=== PATIENT | female | born 1975 | race Caucasian/White ===

== ENCOUNTER 2020-11-29 20:55 | Emergency (ER) | payer SELFPAY ==
[2020-11-29 21:18] VITALS: BP 111/79; PULSE 69; RESP 18; TEMP 36.4; O2SAT 100; BMI 28.1
--- NOTE | 2020-11-29 21:34 | CTR_ITS ---
PROCEDURE INFORMATION: Exam: CT Head Without Contrast Exam date and time: 11/29/2020 9:39 PM Age: 45 years old Clinical indication: Pain; Headache; Patient HX: LAIRD post 2nd covid vaccine TECHNIQUE: Imaging protocol: Computed tomography of the head without contrast. Total images: 183 Radiation optimization: All CT scans at this facility use at least one of these dose optimization techniques: automated exposure control; mA and/or kV adjustment per patient size (includes targeted exams where dose is matched to clinical indication); or iterative reconstruction. COMPARISON: No relevant prior studies available. RADIATION DOSE METRICS: Total DLP (mGy-cm): 791.83 FINDINGS: Brain: No evidence of active or acute intracranial pathologic process, hemorrhage, or trauma. No visible evidence of diffuse cerebral edema or generalized demyelination. No mass effect. No midline shift. Cerebral ventricles: Patent cavum septum pellucidum. No ventriculomegaly. Bones/joints: Unremarkable. No acute fracture. Paranasal sinuses: Visualized sinuses are unremarkable. No fluid levels. Mastoid air cells: Visualized mastoid air cells are well aerated. Soft tissues: Unremarkable. CT/CT head wo con* [id number] IMPRESSION: No evidence of active or acute intracranial pathologic process, hemorrhage, or trauma. Radiation Dose CTDIVOL = (mGy): DLP = 791.83 (mGy-cm)
--- NOTE | 2020-11-29 21:40 | W.ED.HA ---
HPI - Headache General: Chief Complaint: Headache Stated Complaint: Severe headache Time Seen by Provider: 11/29/20 21:25 Source: patient Mode of arrival: ambulatory Limitations: no limitations History of Present Illness: HPI Narrative: 45-year-old female patient presents to the emergency department with severe headache. She received her second dose of Covid vaccine at approximately noon today. She reports took Tylenol approximately 4:30 PM due to her arm being sore at the injection site. She states went outside to feed the animals and to take care of the kids completing chores. States came inside when she immediately developed excruciating headache. She reports nausea, took oxycodone at approximately 7 PM due to severity of the headache. She states is concerned as her father has aneurysm of the brain. She denies history of migraine headaches. She reports neck pain that started prior to onset of headache. She denies fever chills shortness of breath. She reports her headache was the worst headache she has ever experienced. Reports headache was 10 out of 10; now reports headache is 3 out of 10. MD elicited complaint: headache Onset (ago): hour(s) (2) Time: 19:00 Onset description: suddenly Location: occipital Severity: severe Quality & Timing: aching, throbbing and sharp Exacerbating factors: none Relieving factors: other (Oxycodone) Context: occurred with exertion/activity Associated symptoms: Reports no associated symptoms and nausea; Deny confusion, diaphoresis, eye pain, eye redness, fever(s), lightheadedness, loss of vision, malaise, neck stiffness, numbness, photophobia, rash or vomiting Treatments prior to arrival: acetaminophen and prescription analgesic Review of Systems General: Reports: 10 or more systems reviewed and unremarkable except in HPI and below Const: Denies: fever(s), chills, fatigue, malaise or diaphoresis Eyes: Denies: change in vision, blurry vision, eye discomfort or eye redness ENMT: Denies: throat pain, dental pain or disequilibrium Card: Denies: palpitations, swelling of feet/ankles, lightheadedness, dyspnea on exertion or orthopnea Resp: Denies: dyspnea, productive cough, non-productive cough, wheezing or chest congestion GI: Reports: nausea; Denies: abdominal pain, vomiting, heartburn, diarrhea or constipation : Denies: difficulty voiding or dysuria Musc: Reports: neck pain; Denies: back pain, joint pain, joint warmth, joint stiffness or limited range of motion Skin/Breast: Denies: rash, pruritus, erythema, skin tenderness or changes in skin color Neuro: Reports: headache(s); Denies: numbness in extremities, weakness in extremities, sensory changes, difficulty walking or confusion Psych: Denies: anxiety, depression, sleeping more or change in appetite Kevin/Lymph: Denies: easy bruising PFSH ED PFSH: Medical History Healthy adult Family History Father Brain aneurysm Physical Exam Const: COMMON NORMALS: no acute distress, patient oriented x3, healthy appearing, alert and well nourished EXAM LIMITATIONS: no behavioral limitations and no physical limitations GENERAL APPEARANCE: cooperative, comfortable, well kempt, well developed and well hydrated; not anxious, not ill appearing and not frail appearing NUTRITIONAL APPEARANCE: thin ORIENTATION/CONSCIOUSNESS: Yes awake, Yes oriented to person, Yes oriented to place and Yes oriented to time HENMT: COMMON NORMALS: normocephalic, atraumatic, EAC's normal, TM's normal bilaterally, Normal external nose present and moist oral mucous membranes HEAD & SCALP: normal to inspection, normocephalic, atraumatic and scalp tenderness (Diffuse); no cranial bruits, no hematoma and no Temporal artery tenderness present FACE & SINUS: normal facial exam, sinuses nontender and face symmetric; no abrasion, no ecchymosis, no erythema and no edema NOSE: Normal external nose present, Normal nares present and No nasal polyps present EXTERNAL AUDITORY CANAL: EAC's normal TYMPANIC MEMBRANE: TM's normal bilaterally MOUTH: Normal oral and palatal mucosa present, lip normal and tongue normal THROAT: posterior oropharynx normal, tonsils normal and uvula midline; posterior oropharynx not abnormal and no postnasal drainage Eye: COMMON NORMALS: Equal, round and reactive pupils present and EOMs intact bilaterally GENERAL EYE: appearance normal, both eyes and all related structures VISUAL SPICER: No peripheral vision loss ALIGNMENT: Yes alignment normal PERIORBITAL: periorbital findings normal EYELID: eyelids normal PUPIL: Yes Equal, round and reactive pupils present DIRECT OPHTHALMOSCOPY: No photophobia Neck/C-Spine: COMMON NORMALS: full ROM, no lymphadenopathy and no meningeal signs GENERAL: Yes normal visual inspection, Yes trachea midline, No anterior neck swelling and No tender CERVICAL SPINE: Yes cervical ROM normal, No pain with cervical ROM, No Cervical spine tenderness, No Paracervical muscle tenderness, No Paracervical spasm and No Trapezius muscle tenderness Lymph: LYMPHATIC: no lymphadenopathy noted Chest: COMMONS NORMALS: normal inspection of the chest and normal palpation of entire chest wall Resp: COMMON NORMALS: normal respiratory effort, No retractions, No use of accessory muscles and clear to auscultation bilaterally EFFORT & INSPECTION: Yes able to speak in complete sentences, No labored and No retractions AUSCULTATION: clear to auscultation bilaterally Cardio: COMMON NORMALS: regular rate, regular rhythm, S1 normal heart sound present, S2 normal heart sound present and Peripheral pulses 2+ throughout RATE: regular rate RHYTHM: regular rhythm HEART SOUNDS: S1 normal heart sound present and S2 normal heart sound present PERIPHERAL PULSES: Peripheral pulses 2+ throughout GI: COMMON NORMALS: Normal to inspection, nondistended, normoactive bowel sounds present, Soft to palpation and non-tender INSPECTION: Yes normal to inspection, No abdominal wall ecchymosis, No Abdominal wall edema, No abdominal distension and No central obesity PALPATION: Yes Soft to palpation : COMMON NORMALS: Yes no CVA tenderness BLADDER/KIDNEY EXAM: Yes no CVA tenderness Back/Pelvis: COMMON NORMALS: no CVA tenderness, thoracic and lumbar spine normal to inspection, no thoracic nor lumbar tenderness, thoraco-lumbar ROM normal and straight leg raise negative bilaterally Extremity: COMMON NORMALS: normal to inspection and capillary refill normal Neuro: AZAM COMA SCALE: document GCS findings Azam coma scale eye opening: Spontaneous Azam coma scale verbal response: Orientated Newberry coma scale motor response: Obey commands Newberry coma scale total score: 15 COMMON NORMALS: patient oriented x3 and no focal motor deficits SENSORIUM/ORIENTATION: Yes alert, Yes oriented to person, Yes oriented to place and Yes oriented to time MENINGEAL SIGNS: Yes no meningeal signs COORDINATION/BALANCE: [id number] test normal SPEECH: speech normal GAIT: Yes Normal gait present MOTOR EXAM: 5/5 motor strength present throughout, Pronator motor function not present, no tremor noted and Normal motor muscle tone present throughout COORDINATION: [id number] test normal and Romberg test normal Right pupil size (mm): 4 Left pupil size (mm): 4 Psych: COMMON NORMALS: mental status grossly normal, Normal thought process present, cooperative, normal affect, speech normal, activity/motor behavior normal, denies hallucinations, denies homicidal ideation and denies suicidal ideation APPEARANCE: Yes well kempt ACTIVITY/MOTOR BEHAVIOR: Yes appropriate eye contact SPEECH: Yes normal speech THOUGHT PROCESS: Normal thought process present ATTENTION/CONCENTRATION: Yes attention grossly intact MEMORY/COGNITION: Yes memory grossly intact INSIGHT: Good insight present (Psych) JUDGEMENT: Good judgement present (Psych) Skin: COMMON NORMALS: no rashes or lesions noted, no wounds, turgor normal, no petechiae and no mottling GENERAL SKIN EXAM: no rashes or lesions noted, elasticity normal and turgor normal Course Vital Signs: Vital signs: Vital Signs Temperature 97.5 F L 11/29/20 21:18 Pulse Rate 61 11/29/20 22:05 Respiratory Rate 17 11/29/20 22:05 Blood Pressure 116/72 11/29/20 22:05 Pulse Oximetry 99 11/29/20 22:05 MDM - Headache MDM Narrative: Medical decision making narrative: [place] SAH rule; patient cannot be ruled out for subarachnoid hemorrhage by the [place] SAH rule, CT scan brain completed and within 6 hours onset of headache with negative results can rule out SAH. CT scan brain without acute abnormalities, patient was administered Toradol, Benadryl and Zofran with resolution of headache. She reports feels much better and wanting to go home. She is sleepy secondary to Benadryl. I am not able to determine whether headache was due to Covid vaccine but I am suspicious. SAH ruled out, patient advised to return to the emergency room if she develops the worst headache of her life or other concerning symptoms such as fever or neck stiffness. Imaging Data^: CT Head: Radiologist's impression: [address] [address] [address] Scan Report Signed Patient: Cherelle Valentine Unit #: [id number] : 1975 Age/Sex: 45 / F ADM Date: 11/29/20 Loc: ER Room/Bed: Attending Dr: Ordering Provider/Ordering MD: Mayra Quintana Date of Service: 11/29/20 Procedure(s): CT head wo con* [id number] Accession Number(s): [id number] Report Number: [id number] PROCEDURE INFORMATION: Exam: CT Head Without Contrast Exam date and time: 11/29/2020 9:39 PM Age: 45 years old Clinical indication: Pain; Headache; Patient HX: LAIRD post 2nd covid vaccine TECHNIQUE: Imaging protocol: Computed tomography of the head without contrast. Total images: 183 Radiation optimization: All CT scans at this facility use at least one of these dose optimization techniques: automated exposure control; mA and/or kV adjustment per patient size (includes targeted exams where dose is matched to clinical indication); or iterative reconstruction. COMPARISON: No relevant prior studies available. RADIATION DOSE METRICS: Total DLP (mGy-cm): 791.83 FINDINGS: Brain: No evidence of active or acute intracranial pathologic process, hemorrhage, or trauma. No visible evidence of diffuse cerebral edema or generalized demyelination. No mass effect. No midline shift. Cerebral ventricles: Patent cavum septum pellucidum. No ventriculomegaly. Bones/joints: Unremarkable. No acute fracture. Paranasal sinuses: Visualized sinuses are unremarkable. No fluid levels. Mastoid air cells: Visualized mastoid air cells are well aerated. Soft tissues: Unremarkable. CT/CT head wo con* [id number] IMPRESSION: No evidence of active or acute intracranial pathologic process, hemorrhage, or trauma. Radiation Dose CTDIVOL = (mGy): DLP = 791.83 (mGy-cm) Dictated By: Zaki Parra Signed By: Zaki Parra Signed Date/Time: 11/29/202204 DD/ 02 Discharge Plan Discharge Patient Disposition: Home Clinical Impression: Headache Qualifiers: Headache type: unspecified Headache chronicity pattern: episodic headache Intractability: intractable Qualified Code(s): R51.9 - Headache, unspecified Adverse reaction to vaccine Qualifiers: Encounter type: initial encounter Qualified Code(s): T50.Z95A - Adverse effect of other vaccines and biological substances, initial encounter Condition: Stable Discharge Orders: Discharge ED (Routine); Ordered 11/29/20 Ordered By: Mayra Quintana Discharge Diet: Usual diet Discharge Activity: Limit activity as instructed Patient Instructions: Acute Headache (ED), Opioid Safety Activity Restrictions/Additional Instructions: Rest at home tomorrow, take it easy over the next 24 hours. Return the emergency department if you develop the worst headache of your life For mild pain, may continue ibuprofen/Tylenol as needed Push fluids, remain hydrated as this will help with headache Stand Alone Forms: Work/School Release Coding Level of Care Code ED [employer] Supervisor for Shruthi Fwsaira Exam Comprehensive
[2020-11-29] MEDS: ketorolac 30 mg/mL INJ IVP (22:00)
[2020-11-29] MEDS: diphenhydrAMINE 50 mg/mL SDV 1mL 25 MG IVP (22:00)
[2020-11-29] MEDS: sodium chloride 0.9% 500 ML 999 ML IV (22:01)
[2020-11-29 22:05] VITALS: BP 116/72; PULSE 61; RESP 17; O2SAT 99
[2020-11-29 22:39] VITALS: BP 96/66; PULSE 71; RESP 17; O2SAT 99
== END 2020-11-29 22:39 | disposition home or self-care (01) ==
PROVIDERS: Emergency Provider Nurse Practitioner Family
DX: R51.9 Headache, unspecified (principal); T50.Z95A Adverse effect of other vaccines and biological substances, initial encounter
CPT/HCPCS: 70450; 96374; 96375; 99283; J1200; J1885; J7040

== ENCOUNTER 2020-12-01 22:15 | Emergency (ER) | payer SELFPAY ==
[2020-12-01 22:19] VITALS: BP 138/83; PULSE 71; RESP 18; TEMP 36.6; O2SAT 99; BMI 28.1
[2020-12-01 22:36] VITALS: PULSE 70; O2SAT 98
[2020-12-01 22:43] VITALS: BP 124/86; PULSE 67; O2SAT 97
--- NOTE | 2020-12-01 22:43 | ED_ITS ---
HPI - Headache General: Chief Complaint: Headache Stated Complaint: H/A, NECK PAIN Time Seen by Provider: 12/01/20 22:40 Source: patient Mode of arrival: ambulatory Limitations: no limitations History of Present Illness: HPI Narrative: Patient presents today with complaints of recurrence of headache. Patient reports that she did have improvement of the headache 2 days ago when she was treated in the emergency department. At that time she was cleared of a subarachnoid hemorrhage with CT scan. Patient had been given the COVID-19 vaccine second dose earlier that day. Patient reported a sudden onset of a headache. Patient did have improvement of headache with Reglan and Benadryl. Patient reported a recurrence of the headache yesterday but it did not get worse until this evening again. Patient reports taking Tylenol prior to coming to the ER. Patient also reported prior to taking the Tylenol she had taken a 5 mg oxycodone tablet. Patient appears in moderate pain. Patient appears well. Review of Systems General: Reports: 10 or more systems reviewed and unremarkable except in HPI and below Neuro: Reports: headache(s) PFS ED PFSH: Medical History Healthy adult Family History Father Brain aneurysm Physical Exam Const: COMMON NORMALS: no acute distress and patient oriented x3 GENERAL APPEARANCE: cooperative HENMT: COMMON NORMALS: normocephalic, TM's normal bilaterally and Normal external nose present HEAD & SCALP: normal to inspection and normocephalic NOSE: Normal external nose present TYMPANIC MEMBRANE: TM's normal bilaterally MOUTH: Normal oral and palatal mucosa present Eye: GENERAL EYE: appearance normal, both eyes and all related structures Neck/C-Spine: COMMON NORMALS: full ROM (Paraspinous muscle tenderness.) Lymph: LYMPHATIC: no lymphadenopathy noted Chest: COMMONS NORMALS: normal inspection of the chest Resp: COMMON NORMALS: normal respiratory effort EFFORT & INSPECTION: Yes able to speak in complete sentences Cardio: COMMON NORMALS: regular rate and regular rhythm RATE: regular rate RHYTHM: regular rhythm GI: COMMON NORMALS: non-tender Extremity: COMMON NORMALS: normal to inspection Neuro: COMMON NORMALS: patient oriented x3 and moves all extremities Psych: COMMON NORMALS: mental status grossly normal and cooperative Skin: COMMON NORMALS: no rashes or lesions noted GENERAL SKIN EXAM: no rashes or lesions noted Course ED course: 2349, patient reports significant improvement in headache and wishes to go home. Patient does report some muscle tension in her neck. I ordered her 60 mg orphenadrine IV prior to discharge for her muscle tension. Vital Signs: Vital signs: Vital Signs Temperature 97.9 F 12/01/20 22:19 Pulse Rate 67 12/01/20 22:43 Respiratory Rate 18 12/01/20 22:19 Blood Pressure 124/86 12/01/20 22:43 Pulse Oximetry 97 12/01/20 22:43 MDM - Headache MDM Narrative: Medical decision making narrative: 45-year-old female comes in today with recurrence of headache. Patient has had a headache since having her second Covid vaccine, patient was seen 2 days ago was treated for headache when the office was cleared of a subarachnoid hemorrhage. Patient appears well. Patient appears in moderate to severe pain. No focal neural deficits are noted. Pupils are equal and reactive. Abdomen soft nontender. Patient moves neck without difficulty. Skin is warm and dry. Vital signs are normal. Differential diagnosis includes but not limited to migraine headache, encephalitis, meningitis. CRP was normal. Remainder of labs were unremarkable. Patient had improvement of headache with headache cocktail. Suspect patient's had headache due to the Covid vaccine, due to some anecdotal evidence of reported significant headaches with the vaccine. Reassured patient and recommended return to the ER for worsening symptoms or new concerns. Lab Data: Labs: Lab Results 12/01/20 12/01/20 Range/Units 23:00 23:00 WBC 4.5 (4.0-10.0) 10^3/ uL RBC 4.35 (4.1-5.3) 10^6/u L Hgb 13.4 (11.5-15.3) g/dL Hct 39.8 (37.0-47.0) % MCV 91.5 (81-99) fL MCH 30.8 (28.0-34.0) pg MCHC 33.7 (30.0-36.0) g/dL RDW 11.8 L (12.1-15.1) % Plt Count 234 (130-400) 10^3/c mm MPV 10.3 (7.4-10.4) fL Neut % (Auto) 58.2 % Lymph % (Auto) 27.2 % Victoria % (Auto) 11.1 % Eos % (Auto) 2.9 % Baso % (Auto) 0.4 % Neut # (Auto) 2.63 (1.8-7.7) 10^3/u L Lymph # (Auto) 1.2 (0.8-4.8) 10^3/u L Victoria # (Auto) 0.5 (0.2-0.9) 10^3/u L Eos # (Auto) 0.1 (0.0-0.8) 10^3/u L Baso # (Auto) 0.0 (0.0-0.1) 10^3/u L Nucleated RBC % (a uto) 0 % Nucleated RBCs # 0.0 /100WBC Sodium 138 (136-145) mmol/L Potassium 3.7 (3.5-5.1) mmol/L Chloride 103 (98-107) mmol/L Carbon Dioxide 26 (22-29) mmol/L Anion Gap 12.7 (5-19) BUN 14 (6-20) mg/dL Creatinine 0.8 (0.5-0.9) mg/dL GFR Calculation 77.6 L (90-130) mL/min Glucose 122 H (65-115) mg/dL Calculated Osmolal ity 288 (285-295) mOsm/k g Calcium 8.6 (8.5-10.5) mg/dL Total Bilirubin 0.2 (0.15-1.2) mg/dL AST 13 (0-32) U/L ALT 9 (0-33) U/L Alkaline Phosphata se 53 (35-105) IU/L C-Reactive Protein 7.7 H (0.0-4.9) mg/L Total Protein 6.8 (6.6-8.7) g/dL Albumin 3.9 (3.5-5.2) g/dL Globulin 2.9 (1.3-4.6) g/dL Discharge Plan Discharge Patient Disposition: Home Clinical Impression: Headache Qualifiers: Headache type: unspecified Headache chronicity pattern: acute headache Intractability: not intractable Qualified Code(s): R51.9 - Headache, unspecified Condition: Stable Prescriptions: New naproxen 500 mg tablet 500 mg PO BID Qty: 14 RF: 0 promethazine 25 mg tablet 25 mg PO TID PRN (Reason: nausea and headache) Qty: 14 RF: 0 Discharge Orders: Discharge ED (Routine); Ordered 12/01/20 Ordered By: Felton Vazquez Referrals: Tila Abrams FNP [Primary Care Provider] - Discharge Diet: Usual diet Discharge Activity: Increase activity as tolerated Patient Instructions: Acute Headache (ED), Opioid Safety Activity Restrictions/Additional Instructions: Drink plenty of water. Follow-up with primary care in 2 days for recheck. Return to the emergency department for worsening symptoms or new concerns. Coding Level of Care Code ED Split Leather Mosser for Milog Fwd Exam Comprehensive
[2020-12-01] MEDS: diphenhydrAMINE 50 mg/mL SDV 1mL 12.5 MG IVP (22:53)
[2020-12-01] MEDS: ketorolac 30 mg/mL INJ 15 MG IVP (22:55)
[2020-12-01] MEDS: dexamethasone 4 mg/mL INJ 8 MG IVP (22:56)
[2020-12-01] MEDS: metoclopramide 5 mg/mL SDV 2 mL 10 MG IVP (22:57)
[2020-12-01] MEDS: sodium chloride 0.9% 500 ML 999 ML IV (22:58)
[2020-12-01 23:13] LABS: Basophils % 0.4 %; Eosinophils # 0.1 10^3/uL (0.0-0.8); Eosinophils % 2.9 %; Hematocrit 39.8 % (37.0-47.0); Hemoglobin 13.4 g/dL (11.5-15.3); Lymphocytes # 1.2 10^3/uL (0.8-4.8); Lymphocytes % 27.2 %; Mean Corpuscular HGB Conc 33.7 g/dL (30.0-36.0); Mean Corpuscular Hemoglobin 30.8 pg (28.0-34.0); Mean Corpuscular Volume 91.5 fL (81-99); Mean Platelet Volume 10.3 fL (7.4-10.4); Monocytes # 0.5 10^3/uL (0.2-0.9); Monocytes % 11.1 %; Neutrophils # 2.63 10^3/uL (1.8-7.7); Neutrophils % 58.2 %; Nucleated Red Blood Cells % 0 %; Platelet Count 234 10^3/cmm (130-400); Red Blood Count 4.35 10^6/uL (4.1-5.3); Red Cell Distribution Width 11.8 % (12.1-15.1); White Blood Count 4.5 10^3/uL (4.0-10.0)
[2020-12-01 23:31] LABS: Alanine Aminotransferase 9 U/L (0-33); Albumin Level 3.9 g/dL (3.5-5.2); Alkaline Phosphatase 53 IU/L (35-105); Anion Gap 12.7 (5-19); Aspartate Amino Transferase 13 U/L (0-32); Blood Urea Nitrogen 14 mg/dL (6-20); C Reactive Protein 7.7 mg/L (0.0-4.9); Calcium 8.6 mg/dL (8.5-10.5); Carbon Dioxide 26 mmol/L (22-29); Chloride 103 mmol/L (98-107); Globulin 2.9 g/dL (1.3-4.6); Glomerular Filtration Rate 77.6 mL/min (90-130); Glucose 122 mg/dL (65-115); Osmolality Calculated 288 mOsm/kg (285-295); Potassium 3.7 mmol/L (3.5-5.1); Sodium 138 mmol/L (136-145); Total Bilirubin 0.2 mg/dL (0.15-1.2); Total Protein 6.8 g/dL (6.6-8.7)
[2020-12-01] MEDS: orphenadrine 30 mg/mL Inj 2 mL 60 MG IVP (23:54)
[2020-12-01 23:55] VITALS: PULSE 59; O2SAT 98
[2020-12-01 23:56] VITALS: BP 110/80; PULSE 57; O2SAT 98
== END 2020-12-02 | disposition home or self-care (01) ==
PROVIDERS: Emergency Provider Nurse Practitioner Family; PCP Registered Nurse
DX: R51.9 Headache, unspecified (principal)
CPT/HCPCS: 80053; 85025; 86140; 96374; 96375; 99283; J1100; J1200; J1885; J2360; J2765; J7030